=== PATIENT | female | born 1965 | race Two or more races ===

== ENCOUNTER 2020-10-20 15:14 | Emergency (ER) | payer OTHER ==
[~2020-10-20] VITALS: Ht 167.6 cm; Wt 79.8 kg
[2020-10-20 15:33] VITALS: BP 173/102
[2020-10-20] MEDS ORDERED: AMOX-430 PO ×2 (16:05→16:21)
--- NOTE | 2020-10-20 16:15 | NUR ---
COVID SWAB DONE AND SENT TO LAB
[2020-10-20] MEDS ORDERED: AMOX1TAB13 PO (16:18)
--- NOTE | 2020-10-20 16:31 | NUR ---
Patient discharged to home in stable condition. Written and verbal after care instructions given. Patient verbalizes understanding of instruction. Pt ambulatory with a steady gait
== END 2020-10-20 16:32 | disposition home or self-care (01) ==
LOC: ER 15:14
DX: J01.90 Acute sinusitis, unspecified (principal); R61 Generalized hyperhidrosis; Z20.822 Contact with and (suspected) exposure to COVID-19; Z85.41 Personal history of malignant neoplasm of cervix uteri; R03.0 Elevated blood-pressure reading, without diagnosis of hypertension
CPT/HCPCS: 99283; C9803; U0003